=== PATIENT | male | born 1990 | race Caucasian/White ===

== ENCOUNTER 2022-08-28 06:35 | Emergency (ER) | payer MEDICAID, SELFPAY ==
--- NOTE | 2022-08-28 06:30 | RT.EKG_ITS ---
APPROVED REPORT Exam: Resting ECG Reason for Exam: dizzy Patient Location: E HR:94 bpm ECG Measurements Heart Rate 94 AXIS [place] 187 P 93 QRSd 120 QRS 48 QT 366 T 24 QTc 458 Conclusion Sinus rhythm...normal P axis, V-rate 60- 99 Nonspecific intraventricular conduction delay...QRSd >115mS, not LBBB/RBBB Borderline ST elevation, anterior leads...ST >0.15mV in V1-V4 sinus rhythm, normal axis, normal intervals, non ischemic
[2022-08-28 06:35] VITALS: BP 140/96; PULSE 106; RESP 18; TEMP 36.5; O2SAT 98
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
[2022-08-28 08:01] LABS: Abs Immature Grans 0.01 10^3/uL (0.0-0.06); Absolute Basophil Count 0.03 10^3/uL (0.0-0.2); Absolute Eosinophil Count 0.11 10^3/uL (0.0-0.7); Absolute Lymphocyte Count 1.82 10^3/uL (1.2-3.4); Absolute Monocyte Count 0.41 10^3/uL (0.1-0.8); Absolute Neutrophil Count 3.37 10^3/uL (1.2-6.7); Basophils % 0.5; Eosinophils % 1.9; HCT 47.1 % (40.0-50.0); HGB 15.6 g/dL (13.5-17.5); Immature Grans % 0.2; Lymphocytes % 31.7; MCH 27.2 pg (27.0-33.0); MCHC 33.1 % (32.0-36.0); MCV 82 fL (80-95); MPV 9.1 fL (8.0-11.0); Monocytes % 7.1; Neutrophils % 58.6; Platelet Count 170 10^3/uL (130-400); RBC 5.74 10^6/uL (4.36-5.78); RDW 13.9 % (11.8-14.1); WBC 5.75 10^3/uL (4.4-10.8)
[2022-08-28] MEDS: Normal Saline 1,000 ML 1000 ML IV (08:04)
[2022-08-28] MEDS: LORazepam 2 MG/ML VIAL 1 MG IVP (08:04)
[2022-08-28] MEDS: levETIRAcetam 1,000 MG in Normal Saline 100 ML 400 MG IVPB (08:07)
[2022-08-28 08:12] LABS: ALT 20 U/L (16-63); AST 33 U/L (15-37); Albumin 4.1 g/dL (3.4-5.0); Alkaline Phosphatase 92 U/L (46-116); Anion Gap 11.8 mmol/L (3-11); BUN 11 mg/dL (7-18); Bilirubin, Total 0.5 mg/dL (0.2-1.0); CO2 27.2 mmol/L (21.0-32.0); CREATININE 1.3 mg/dL (0.70-1.30); Calcium 8.7 mg/dL (8.5-10.1); Chloride 96 mmol/L (98-107); ETHANOL BLOOD 42.5 mg/dL (<10); Estimated GFR 74.39 (mL/min/1.73m2); Glucose 131 mg/dL (74-106); Potassium 3.1 mmol/L (3.5-5.1); Sodium 135 mmol/L (136-145); Total Protein 9.1 g/dL (6.4-8.2)
--- NOTE | 2022-08-28 09:15 | DI.CT_ITS ---
Exam(s) CT HEAD WO EXAM: CT HEAD WO CLINICAL HISTORY: Seizure. TECHNIQUE: Imaging Protocol: Axial computed tomography images with coronal and sagittal reformatted images were created and reviewed COMPARISON: No exams were available for comparison FINDINGS: Ventricles and Extra axial spaces: Normal in size and morphology for the patient's age. Hemorrhage: None. Cerebral parenchyma: Normal. Midline shift: None. Brainstem/Cerebellum: Normal. Calvarium: Normal. Visualized Paranasal sinuses/Mastoids: Clear. Soft Tissues: Unremarkable. IMPRESSION: 1. No acute intracranial process. 2. Findings were discussed with Dr. Dash at 10:11 a.m. on 08/28/2022. RADIATION DOSE DELIVERED: Total DLP DATA REPOSITORY: All CT scans at this facility are submitted to the National Radiology Data Registry (NRDR) Dose Index Registry (DIR) with the [employer] ([employer]). RADIATION OPTIMIZATION: All CT scans at this facility use at least one of these dose optimization te chniques: automated exposure control; mA and/or kV adjustment per patient size (includes targeted exa ms where dose is matched to clinical indication); or iterative reconstruction.
== END 2022-08-28 10:42 | disposition home or self-care (01) ==
LOC: ER 10:44
PROVIDERS: Emergency Provider Emergency Medicine
DX: R56.9 Unspecified convulsions (principal); F10.239 Alcohol dependence with withdrawal, unspecified; R25.1 Tremor, unspecified; R25.3 Fasciculation; Y90.2 Blood alcohol level of 40-59 mg/100 ml
CPT/HCPCS: 36415; 36416; 80053; 82962; 93005; 96365; 96375; 99284; 70450; 80320; 85025; 93010; J1953; J2060